=== PATIENT | female | born 1955 | race Caucasian/White ===

== ENCOUNTER 2017-02-04 13:58 | Emergency (ER) | payer OTHER ==
[2017-02-04 14:16] VITALS: BP 130/66; PULSE 102; TEMP 97.5; BMI 33.5
[2017-02-04] MEDS ORDERED: ENOXAPARIN NA (PORCINE) 80 MG/0.8 ML DISP.SYRIN SQ SCH (16:30)
[2017-02-04] MEDS ORDERED: ENOXAPARIN NA (PORCINE) 100 MG/1 ML DISP.SYRIN SQ ONE (16:34)
--- NOTE | 2017-02-04 16:35 | PDOC ---
History of Present Illness - General Chief Complaint: Revisit, Lab Variance Stated Complaint: PCP: SENT Time Seen by Provider: 02/04/17 14:36 History Source: Patient Exam Limitations: No Limitations - History of Present Illness Initial Comments: 02/04/17 15:35 61-year-old female sent in by her primary care physician for evaluation of left DVT. Patient states was having pain to her calf with some swelling and went for an ultrasound today that showed a DVT in the left popliteal vein. Patient denies previous history of DVT, recent travel, recent illness, recent antibiotics, recent sedentary lifestyle, or history of clotting disorders. Patient denies chest pain, shortness of breath, dizziness, or headache. Timing/Duration: constant Severity: mild Associated Symptoms: reports: denies symptoms Past History - Past Medical History Allergies/Adverse Reactions: Allergies Allergy/AdvReac Type Severity Reaction Status Date / Time No Known Allergies Allergy Verified 02/04/17 14:09 Home Medications: Ambulatory Orders Enoxaparin [Lovenox -] 90 mg SQ BID #60 disp.syrin 02/04/17 - Suicide/Smoking/Psychosocial Hx Smoking History: Never smoked Information on smoking cessation initiated: No Hx Alcohol Use: No Drug/Substance Use Hx: No Substance Use Type: None Patient Lives Alone: No Lives with/in: spouse/SO Review of Systems - Review of Systems Able to Perform ROS?: Yes Constitutional: No: Symptoms Reported HEENTM: No: Symptoms Reported Respiratory: No: Symptoms reported Cardiac (ROS): No: Symptoms Reported ABD/GI: No: Symptoms Reported : No: Symptoms Reported Musculoskeletal: Yes: Muscle Pain (left calf pain) Integumentary: No: Symptoms Reported Neurological: No: Symptoms reported Endocrine: No: Symptoms Reported Hematologic/Lymphatic: No: Symptoms Reported *Physical Exam - Vital Signs Last Vital Signs Temp Pulse Resp BP Pulse Ox 97.5 F L 102 H 16 130/66 100 02/04/17 14:11 02/04/17 14:11 02/04/17 14:11 02/04/17 14:11 02/04/17 14:11 - Physical Exam General Appearance: Yes: Nourished, Appropriately Dressed. No: Apparent Distress Neck: positive: Supple Respiratory/Chest: positive: Lungs Clear, Normal Breath Sounds. negative: Respiratory Distress, Accessory Muscle Use Cardiovascular: positive: Regular Rhythm, Tachycardia. negative: Murmur Gastrointestinal/Abdominal: positive: Soft. negative: Tenderness Extremity: positive: Normal Capillary Refill, Normal Inspection, Normal Range of Motion, Swelling (mild LLE), Calf Tenderness (left. positive Homans). negative: Pedal Edema Integumentary: positive: Normal Color, Warm, Moist Neurologic: positive: Motor Strength 5/5 (ambulatory) Medical Decision Making - Medical Decision Making 02/04/17 16:41 Patient here for evaluation of left popliteal DVT that was diagnosed today after receiving an ultrasound. Patient on exam mild left calf tenderness with positive Homans. Patient otherwise had no acute findings including respiratory or cardiac complaints. Patient ordered for Lovenox and call placed to Dr. Alee Henao patient's primary care physician to discuss disposition and aboriginal education worker coordinator f/u. 02/04/17 16:[address] Boswell and recommend Lovenox along with referral to Dr. Delong. *DC/Admit/Observation/Transfer Diagnosis at time of Disposition: Deep vein thrombosis (DVT) of popliteal vein of left lower extremity Qualifiers: Chronicity: acute Qualified Code(s): I82.432 - Acute embolism and thrombosis of left popliteal vein; I82.432 - Acute embolism and thrombosis of left popliteal vein; I82.432 - Acute embolism and thrombosis of left popliteal vein; I82.432 - Acute embolism and thrombosis of left popliteal vein - Discharge Dispostion Disposition: HOME Condition at time of disposition: Good - Prescriptions Prescriptions: Enoxaparin [Lovenox -] 90 mg SQ BID #60 disp.syrin - Referrals Referrals: Alee Boswell MD [Primary Care Provider] - Rhonda Lovell MD [Staff Physician] - - Patient Instructions Printed Discharge Instructions: DI for Deep Vein Thrombosis Additional Instructions: Please admit a medication twice a day and please follow-up with referred aboriginal education worker coordinator. If your symptoms worsen including chest pain and shortness of breath, , despite medication usage please go to the nearest ER.
== END 2017-02-04 17:10 | disposition home or self-care (01) ==
LOC: JER 13:58
PROC: 3E0233Z Introduction of Anti-inflammatory into Muscle, Percutaneous Approach (ICD-10-PCS; principal; 2017-02-04)
DX: I82.432 Acute embolism and thrombosis of left popliteal vein (principal)
CPT/HCPCS: 99281-25